=== PATIENT | female | born 1980 | race Asian ===

== ENCOUNTER 2016-03-20 03:10 | Inpatient (IN) | payer SELFPAY ==
[~2016-03-20] VITALS: Ht 163 cm; Wt 69.9 kg
[2016-03-20] MEDS: LACTATED RINGERS 1,000 ML IV SCH ×2 (03:49→12:31)
[2016-03-20] MEDS ORDERED: PRENATAL VITAMI1 TA2 PO (03:56)
[2016-03-20] MEDS ORDERED: VITAMIN B121000 MC2 PO (03:56)
[2016-03-20] MEDS ORDERED: BETAMETH ACET/BETAMETH NA PH 30 MG/5 ML VIAL IM SCH (04:00)
[2016-03-20] MEDS ORDERED: OXYTOCIN 10 UNITS/ML VIAL IM SCH (04:00)
[2016-03-20] MEDS ORDERED: PROMETHAZINE 25 MG/ML VIAL IVP PRN (04:00)
[2016-03-20] MEDS ORDERED: AMPICILLIN 2,000 MG in NACL 0.9% MINI-BAG PLUS 100 ML IV SCH (04:00)
[2016-03-20] MEDS ORDERED: NALBUPHINE HYDROCHLORIDE 10 MG/ML VIAL IVP PRN (04:00)
[2016-03-20] MEDS ORDERED: BETAMETH ACET/BETAMETH NA PH 30 MG/5 ML VIAL IM ONE ×2 (04:31→16:17)
[2016-03-20] MEDS ORDERED: AMPICILLIN 2,000 MG VIAL ONE (04:31)
[2016-03-20 04:59] VITALS: BP 114/68
[2016-03-20] MEDS ORDERED: INFLUENZA VIRUS VACCINE QUAD 0.5 ML SYR IMVAC SCH (05:00)
[2016-03-20] MEDS ORDERED: CITRIC ACID/SODIUM CITRATE 30 ML UDC PO SCH ×2 (05:25→22:30)
[2016-03-20] MEDS ORDERED: AMPICILLIN 1,000 MG VIAL ONE ×4 (08:11→20:32)
--- NOTE | 2016-03-20 08:13 | NUR ---
PATIENT HAS BEEN SCREENED AND CATEGORIZED LOW NUTRITION RISK. PATIENT WILL BE SEEN WITHIN 7 DAYS OF ADMISSION. 03/26/[address]
[2016-03-20] MEDS: AMPICILLIN 1,000 MG in NACL 0.9% MINI-BAG PLUS 50 ML IV SCH ×4 (08:27→20:34)
[2016-03-20] MEDS ORDERED: TERBUTALINE 1 MG/ML VIAL SUBQ ONE ×2 (08:55→13:10)
[2016-03-20] MEDS: TERBUTALINE 1 MG/ML VIAL SUBQ SCH ×2 (09:00→09:31)
[2016-03-20] MEDS ORDERED: TERBUTALINE 2.5 MG TAB ONE ×2 (10:15→16:17)
[2016-03-20] MEDS: TERBUTALINE 2.5 MG TAB PO SCH ×2 (10:21→16:27)
[2016-03-20] MEDS ORDERED: TERBUTALINE 1 MG/ML VIAL SUBQ SCH (13:05)
[2016-03-20] MEDS ORDERED: MORPHINE SULFATE 10 MG/ML SYR IVP SCH (20:05)
[2016-03-20] MEDS ORDERED: MORPHINE SULFATE 10 MG/ML SYR ONE (20:11)
[2016-03-20] MEDS ORDERED: ceFAZolin 1,000 MG VIAL ONE (22:02)
[2016-03-20] MEDS ORDERED: CITRIC ACID/SODIUM CITRATE 30 ML UDC ONE (22:02)
[2016-03-20] MEDS ORDERED: ePHEDrine 50 MG/ML VIAL IV ONE (22:15)
[2016-03-20] MEDS ORDERED: ONDANSETRON 4 MG/2 ML VIAL IVP ONE (22:15)
[2016-03-20] MEDS ORDERED: BUPIVACAINE-MPF 0.75% 10 ML VIAL INJ ONE (22:15)
[2016-03-20] MEDS ORDERED: OXYTOCIN 10 UNITS/ML VIAL ONE (22:17)
[2016-03-20] MEDS ORDERED: METHYLERGONOVINE 0.2 MG/ML AMP ONE (22:17)
[2016-03-20] MEDS ORDERED: TRIAMCINOLONE 40 MG/ML 5ML VIAL ONE (22:17)
[2016-03-20] MEDS: OXYTOCIN 20 UNITS/LR PREMIX 1,000 ML IV SCH ×3 (22:18→23:59)
[2016-03-20] MEDS ORDERED: KETAMINE 500 MG/5 ML VIAL ONE (22:22)
[2016-03-20] MEDS ORDERED: MIDAZOLAM 2 MG/2 ML VIAL ONE (22:22)
[2016-03-20] MEDS ORDERED: fentaNYL 0.05 MG/ML VIAL ONE (22:22)
[2016-03-20] MEDS ORDERED: MORPHINE PRES FREE 10 MG/10 ML AMP IV ONE (22:23)
[2016-03-20] MEDS ORDERED: ONDANSETRON 4 MG/2 ML VIAL IVP PRN (23:10)
[2016-03-20] MEDS ORDERED: KETOROLAC 30 MG/ML VIAL IVP PRN (23:10)
[2016-03-20] MEDS ORDERED: diphenhydrAMINE 50 MG/ML VIAL IVP PRN (23:10)
[2016-03-20] MEDS ORDERED: OXYTOCIN 20 UNITS/LR PREMIX 1,000 ML IV ONE (23:14)
[2016-03-20] MEDS ORDERED: IBUPROFEN 800 MG TAB PO PRN (23:25)
[2016-03-20] MEDS ORDERED: METHYLERGONOVINE 0.2 MG/ML AMP IM PRN (23:25)
[2016-03-20] MEDS ORDERED: oxyCODONE/APAP 5/325 MG 1 TAB TAB PO PRN (23:25)
[2016-03-20] MEDS ORDERED: HYDROcodone/APAP 5/325 MG 1 TAB TAB PO PRN (23:25)
[2016-03-20] MEDS ORDERED: TRIMETHOBENZAMIDE 200 MG/2 ML SYR IM PRN (23:25)
[2016-03-20] MEDS ORDERED: MEASLES, MUMPS, AND RUBELLA 1 VIAL SQVAC PRN (23:25)
[2016-03-20] MEDS ORDERED: SIMETHICONE 80 MG TAB.CHEW PO PRN (23:25)
[2016-03-20] MEDS ORDERED: TEMAZEPAM 15 MG CAP PO PRN (23:25)
[2016-03-20] MEDS ORDERED: METOCLOPRAMIDE 10 MG/2 ML INJ VIAL ONE (23:51)
[2016-03-21] MEDS ORDERED: METOCLOPRAMIDE 10 MG/2 ML INJ VIAL IVP PRN (00:10)
[2016-03-21] MEDS ORDERED: OXYTOCIN 20 UNITS/LR PREMIX 1,000 ML IV ONE (00:18)
[2016-03-21] MEDS: OXYTOCIN 20 UNITS/LR PREMIX 1,000 ML IV SCH ×3 (03:37→16:54)
[2016-03-21] MEDS: METOCLOPRAMIDE 10 MG TAB PO SCH ×4 (10:10→21:11)
[2016-03-21] MEDS: DOCUSATE SOD/SENNA 50/8.6 MG 1 TAB PO SCH (20:57)
[2016-03-22] MEDS ORDERED: INFLUENZA VIRUS VACCINE QUAD 0.5 ML SYR IMVAC SCH (03:00)
[2016-03-22] MEDS: METOCLOPRAMIDE 10 MG TAB PO SCH ×4 (08:48→21:16)
[2016-03-22] MEDS: DOCUSATE SOD/SENNA 50/8.6 MG 1 TAB PO SCH (21:00)
== END 2016-03-23 13:20 | disposition home or self-care (01) | DRG 766 ==
LOC: MLD 03:10 → MFCC 03-21 00:35 → MLD 03-21 00:35 → UNDODISIN 03-23 13:20
PROVIDERS: ADMIT Obstetrics & Gynecology; ATTEND Obstetrics & Gynecology
PROC: 10D00Z1 Extraction of Products of Conception, Low, Open Approach (ICD-10-PCS; principal; 2016-03-20 22:30)
DX: O34.211 Maternal care for low transverse scar from previous cesarean delivery (principal); O42.913 Preterm premature rupture of membranes, unspecified as to length of time between rupture and onset of labor, third trimester; Z37.0 Single live birth; Z3A.36 36 weeks gestation of pregnancy; O09.523 Supervision of elderly multigravida, third trimester